=== PATIENT | female | born 1935 | race Caucasian/White ===

== ENCOUNTER → 2016-05-07 | Outpatient (CLI) | payer OTHER ==
[~2016-05-07] MED LIST: ADULT LOW DOSE81 MG PO; CALCIUM 600 +1 EAC9 PO; FOLIC ACID 40400 MC1 PO; HCTZ PO; LIPITOR10 MG PO; PRAVASTATIN SOD20 MG PO; VITAMINC500 PO
== END ==
LOC: NUC 09:36
DX: M85.80 Other specified disorders of bone density and structure, unspecified site (principal); N91.2 Amenorrhea, unspecified; N95.9 Unspecified menopausal and perimenopausal disorder

== ENCOUNTER → 2017-03-25 | Outpatient (CLI) | payer OTHER | LOC: RAD 09:19 | DX: Z12.31 Encounter for screening mammogram for malignant neoplasm of breast (principal) ==

== ENCOUNTER → 2017-05-13 | Outpatient (CLI) | payer OTHER | LOC: NUC 09:40 | DX: M81.0 Age-related osteoporosis without current pathological fracture (principal); M85.89 Other specified disorders of bone density and structure, multiple sites; R31.9 Hematuria, unspecified; E28.39 Other primary ovarian failure; Z78.0 Asymptomatic menopausal state; Z79.899 Other long term (current) drug therapy ==

== ENCOUNTER → 2018-03-26 | Outpatient (CLI) | payer OTHER | LOC: RAD 02:05 | DX: Z12.31 Encounter for screening mammogram for malignant neoplasm of breast (principal) ==

== ENCOUNTER → 2019-04-07 | Outpatient (CLI) | payer OTHER | LOC: BC 09:48 | DX: Z12.31 Encounter for screening mammogram for malignant neoplasm of breast (principal) ==

== ENCOUNTER → 2019-04-13 | Outpatient (CLI) | payer OTHER | LOC: RAD 09:48 | DX: R92.1 Mammographic calcification found on diagnostic imaging of breast (principal); N64.89 Other specified disorders of breast ==